=== PATIENT | female | born 1980 | race Caucasian/White ===

== ENCOUNTER 2022-07-23 18:08 | Emergency (ER) | payer BC ==
[~2022-07-23] VITALS: Ht 172.7 cm; Wt 127.0 kg
[2022-07-23 18:33] LABS: BASOPHILS ABSOLUTE AUTO 0.06 K/mm3 (0.00-0.23); BASOPHILS PERCENT AUTO 1 % (0-2); EOSINOPHILS ABSOLUTE AUTO 0.09 K/mm3 (0.00-0.68); EOSINOPHILS PERCENT AUTO 1 % (0-6); Hematocrit 42.1 % (33.0-51.0); Hemoglobin 14.7 g/dL (11.5-16.0); IMMATURE GRAN ABSOLUTE AUTO 0.03 K/mm3 (0.00-0.10); IMMATURE GRAN PERCENT AUTO 0 % (0-1); LYMPHOCYTES ABSOLUTE AUTO 1.95 K/mm3 (0.84-5.20); LYMPHOCYTES PERCENT AUTO 17 % (21-46); MONOCYTES ABSOLUTE AUTO 0.83 K/mm3 (0.16-1.47); MONOCYTES PERCENT AUTO 7 % (4-13); Mean Corpuscular HGB Conc 34.9 g/dL (31.5-36.5); Mean Corpuscular Volume 89 fL (80-100); NEUTROPHILS PERCENT AUTO 74 % (41-73); Platelet Count 203 K/mm3 (150-400); RDW Coefficient Variation 12.3 % (11.7-14.2); RDW Standard Deviation 40.3 fL (35.1-46.3); Red Blood Cell Count 4.74 M/mm3 (3.80-5.20); White Blood Cell Count 11.46 K/mm3 (4.00-11.30)
[2022-07-23 19:04] LABS: Bilirubin, Total 0.5 mg/dL (0.1-1.0); Bun/Creatinine Ratio 19.7 (12.0-20.0); Calcium, Blood 9.2 mg/dL (8.5-10.1); Creatinine, Blood 0.61 mg/dL (0.40-1.00); Globulin, Blood 4.1 g/dL (2.2-4.0); Potassium, Blood 3.9 mmol/L (3.5-5.5); Total Protein, Blood 8.1 g/dL (6.4-8.2)
[2022-07-23] MEDS ORDERED: METF500 PO (23:32)
== END 2022-07-24 00:50 | disposition home or self-care (01) ==
LOC: ER 18:08
PROVIDERS: Student in an Organized Health Care Education/Training Program
DX: R10.32 Left lower quadrant pain (principal); R19.04 Left lower quadrant abdominal swelling, mass and lump; E11.9 Type 2 diabetes mellitus without complications; Z79.84 Long term (current) use of oral hypoglycemic drugs
CPT/HCPCS: 36415; 80053; 85025; J1885

== ENCOUNTER → 2024-07-22 | Outpatient (CLI) | payer OTHER ==
[~2024-07-22] MED LIST: ATEN25 PO; EUTHYROX137 MCG PO; METF500 PO
[2024-07-22 11:37] LABS: Microalb/Creat Ratio UR, Rand 7.526 mg/g (0.000-30.000); Microalbumin, Random Urine 14.6 mg/L (0.000-20.000)
== END | disposition home or self-care (01) ==
LOC: LAB SHORT 09:50 → LAB 09:50
PROVIDERS: Physician Assistant
DX: E11.65 Type 2 diabetes mellitus with hyperglycemia (principal)
CPT/HCPCS: 82043; 82570

== ENCOUNTER 2024-11-04 08:17 | Day surgery (SDC) | payer OTHER ==
[~2024-11-04] VITALS: Ht 172.7 cm; Wt 129.6 kg
[~2024-11-04 08:17] MED LIST changes: +CeFAZolin Sodium 2,000 MG VIAL ONE; +Lactated Ringer's 1,000 ML IV ONE; +Lidocaine HCl 2% 10 ML SDA ONE
[2024-11-04] MEDS ORDERED: CeFAZolin Sodium 3,000 MG VIAL ONE (08:30)
[2024-11-04] MEDS ORDERED: ESCITALOPRAM OXA5 MG PO (08:44)
[2024-11-04] MEDS ORDERED: BUPROPION XL150 M1 PO (08:44)
[2024-11-04] MEDS ORDERED: Amoxicillin500 MG PO (08:45)
[2024-11-04] MEDS ORDERED: OZEMPIC1 MG/0.72 SQ (08:46)
[2024-11-04] MEDS ORDERED: LORA.5 (08:47)
[2024-11-04] MEDS ORDERED: propofoL 20 ML IV ONE ×2 (08:49→10:11)
[2024-11-04] MEDS ORDERED: FentaNYL Citrate 50 MCG/ML 2 ML Injection ONE (08:49)
[2024-11-04] MEDS ORDERED: Midazolam HCl 1MG / ML 2ML Vial ONE (08:49)
[2024-11-04] MEDS ORDERED: Lactated Ringer's 1,000 ML IV ONE (09:01)
[2024-11-04] MEDS ORDERED: Metoclopramide HCl 5MG / ML 2ML Vial ONE (09:28)
[2024-11-04] MEDS ORDERED: Ketorolac Tromethamine 30mg Vial ONE (10:36)
[2024-11-04] MEDS ORDERED: Dexamethasone Sod Phos 10 MG/ML 1ML VIAL ONE (10:38)
[2024-11-04] MEDS ORDERED: Ondansetron HCl 2 MG / ML 2ML Vial ONE (10:38)
[2024-11-04 11:16] VITALS: BP 106/65
[2024-11-04] MEDS ORDERED: HYDROcodone 5-APAP 325 TAB ONE (11:38)
== END 2024-11-04 12:13 | disposition home or self-care (01) ==
LOC: ORSCSDS 08:17
PROVIDERS: Orthopaedic Surgery
PROC: 01N54ZZ Release Median Nerve, Percutaneous Endoscopic Approach (ICD-10-PCS; principal; 2024-11-04 10:00)
PROC: 01N40ZZ Release Ulnar Nerve, Open Approach (ICD-10-PCS; principal; 2024-11-04 10:00)
DX: G56.21 Lesion of ulnar nerve, right upper limb (principal); G56.01 Carpal tunnel syndrome, right upper limb; I10 Essential (primary) hypertension; E11.9 Type 2 diabetes mellitus without complications; E66.01 Morbid (severe) obesity due to excess calories; Z68.41 Body mass index [BMI] 40.0-44.9, adult; Z79.84 Long term (current) use of oral hypoglycemic drugs; Z79.899 Other long term (current) drug therapy
CPT/HCPCS: 82947; A9270; J0690; J1100; J1885; J2003; J2250; J2405; J2704; J2765; J3010; J7120

== ENCOUNTER 2025-01-10 08:33 | Day surgery (SDC) | payer OTHER ==
[~2025-01-10] VITALS: Ht 172.7 cm; Wt 131.3 kg
[~2025-01-10 08:33] MED LIST changes: +Amoxicillin500 MG PO; +BUPROPION XL150 M1 PO; -CeFAZolin Sodium 2,000 MG VIAL ONE; +ESCITALOPRAM OXA5 MG PO; +LORA.5; -Lactated Ringer's 1,000 ML IV ONE; +OZEMPIC1 MG/0.72 SQ
[2025-01-10] MEDS ORDERED: Citric Acid/Sodium Citrate 30 ML BTL ONE (08:42)
[2025-01-10] MEDS ORDERED: CeFAZolin Sodium 3,000 MG VIAL ONE (08:53)
[2025-01-10] MEDS ORDERED: NS 100 ML IV ONE (08:54)
[2025-01-10] MEDS ORDERED: Dexamethasone Sod Phos 10 MG/ML 1ML VIAL ONE (09:49)
[2025-01-10] MEDS ORDERED: Ondansetron HCl 2 MG / ML 2ML Vial ONE (09:49)
[2025-01-10] MEDS ORDERED: Ketorolac Tromethamine 30mg Vial ONE (09:49)
[2025-01-10] MEDS ORDERED: FentaNYL Citrate 50 MCG/ML 2 ML Injection ONE (09:50)
[2025-01-10] MEDS ORDERED: Midazolam HCl 1MG / ML 2ML Vial ONE (09:50)
--- NOTE | 2025-01-10 09:53 | NUR ---
01/10/25 0953 Mary Awan CONSULTED REGARDING PT'S IRREG HEART BEAT. DR. MONSALVE REVIEWED PT'S 3 LEAD EKG AND SPOKE WITH PT. OKAY TO PROCEED.
[2025-01-10] MEDS ORDERED: Ketamine HCl 100 MG / ML 5ML Vial ONE (10:17)
--- NOTE | 2025-01-10 10:47 | NUR ---
01/10/25 1047 Faith Alcala 1044 REPORT FROM ANESTHESIA PT HAD MUTLIPLE EVENTS OF COUGHING AND DROPPED SATS DURING PROCEDURE. PT PLACED ON O2 BY NC AT 3L D/T 89%. PT INSTRUCTED TO DEEP BREATH AND COUGH, SATS INCREASE WITH THIS.
[2025-01-10 10:58] VITALS: BP 113/88
--- NOTE | 2025-01-10 11:27 | NUR ---
01/10/25 1126 Faith Alcala 1110 PT INTO CHAIR, SATS TRIAL -PT MAINTAINED OVER 93% FOR OVER 15MINUTES WITHOUT O2/NC. TOLERATING LIQUIDS AND FOOD.
[2025-01-10] MEDS ORDERED: Albuterol HFA200 ACT/6.7 GM INH ONE (11:56)
== END 2025-01-10 11:32 | disposition home or self-care (01) ==
LOC: ORSCSDS 08:33
PROVIDERS: Orthopaedic Surgery
PROC: 01N54ZZ Release Median Nerve, Percutaneous Endoscopic Approach (ICD-10-PCS; principal; 2025-01-10 10:00)
PROC: 01N40ZZ Release Ulnar Nerve, Open Approach (ICD-10-PCS; principal; 2025-01-10 10:00)
DX: G56.22 Lesion of ulnar nerve, left upper limb (principal); G56.02 Carpal tunnel syndrome, left upper limb; I10 Essential (primary) hypertension; E11.9 Type 2 diabetes mellitus without complications; E66.01 Morbid (severe) obesity due to excess calories; Z68.41 Body mass index [BMI] 40.0-44.9, adult; Z79.899 Other long term (current) drug therapy; Z79.84 Long term (current) use of oral hypoglycemic drugs; Z79.85 Long-term (current) use of injectable non-insulin antidiabetic drugs
CPT/HCPCS: 82947; A9270; J0690; J1100; J1885; J2003; J2250; J2405; J2704; J3010; J7120

== ENCOUNTER → 2025-06-21 | Outpatient (CLI) | payer OTHER ==
[~2025-06-21] MED LIST changes: -Lidocaine HCl 2% 10 ML SDA ONE
== END | disposition home or self-care (01) ==
LOC: LAB 13:28 → LAB SHORT 13:28
DX: M79.662 Pain in left lower leg (principal)
CPT/HCPCS: 85379